=== PATIENT | male | born 1995 | race Caucasian/White ===

== ENCOUNTER 2019-10-31 17:55 | Emergency (ER) | payer BC ==
[~2019-10-31] VITALS: Ht 177.8 cm; Wt 75.0 kg
[2019-10-31 18:00] VITALS: BP 138/94
[2019-10-31] MEDS ORDERED: HYDROcodone/acetaminophen 5mg/325mg tablet PO ONE (18:25)
[2019-10-31] MEDS ORDERED: ondansetron 4mg rapidly disintigrating tab PO ONE (18:25)
[2019-10-31] MEDS ORDERED: HYDR-4383 PO (18:36)
[2019-10-31] MEDS ORDERED: ONDA4TAB6 PO (18:36)
== END 2019-11-01 06:27 | disposition home or self-care (01) ==
LOC: ER 17:56
DX: S93.492A Sprain of other ligament of left ankle, initial encounter (principal); Z79.899 Other long term (current) drug therapy; X50.9XXA Other and unspecified overexertion or strenuous movements or postures, initial encounter; Y93.89 Activity, other specified; Y92.89 Other specified places as the place of occurrence of the external cause; Y99.8 Other external cause status
CPT/HCPCS: 29515; 73610; 99283